=== PATIENT | male | born 1970 | race African-American/Black ===

== ENCOUNTER 2017-01-17 11:54 | Emergency (ER) | payer MEDICAID ==
[~2017-01-17] VITALS: Ht 170.2 cm; Wt 76.9 kg
[2017-01-17 12:03] VITALS: BP 157/96
== END 2017-01-17 13:53 | disposition left against medical advice (07) ==
LOC: ED 12:49
DX: H57.12 Ocular pain, left eye (principal); G89.29 Other chronic pain; I10 Essential (primary) hypertension
CPT/HCPCS: 99281